=== PATIENT | male | born 1935 | race Caucasian/White ===

== ENCOUNTER → 2017-01-02 | Outpatient (CLI) | payer OTHER ==
[~2017-01-02] VITALS: Ht 188 cm; Wt 123.6 kg
[~2017-01-02] MED LIST: ACETAMINOPHEN325 M1 PO; ADALAT CC30 MG; ADULT LOW DOSE81 MG PO; APAP500 PO; AVAPRO300 MG; BACTROBAN NASAL1 GM NS; CENTRUM SILVER1 EAC1 PO; CITRACAL + BON1 EACH PO; CITRACAL + D C1 EACH; COLACE 100 MG100 MG; COLACE 100 MG100 MG PO; COLACE100 MG PO; COUMADIN 5 MG TA5 M1 PO; COUMADIN7.5 MG PO; COZAAR 50 MG TA50 M1 PO; CRESTOR10 MG PO; CYMBALTA20 MG PO; DIOVAN160 MG PO; ENDOCET 10-3251 EACH PO; FENTANYL PA25 MCG/HR TRANSDERM; FENTANYL PA50 MCG/HR TOP; FENTANYL PA50 MCG/HR TP; FENTANYL PATCH75 MCG TRANSDERM; FISH OIL 1,0001 EAC5 PO; FLOMAX PO; FLOMAX0.4 MG PO; GABAPENTIN 100100 MG PO; HYDROCODON-ACE1 EAC5 PO; KEFLEX500 MG PO; LAMISIL250 MG PO; LASIX 40 MG TAB40 M2 PO; LAXATIVE8.6 MG PO; LINZESS145 MCG; LINZESS290 MCG PO; LORTAB; LORTAB 7.5/5001 TA3 PO; LOSARTAN POTAS100 MG PO; LOSARTAN POTASS50 MG PO; LOVASTAT20 PO; LYNOX 10-300 M1 EACH PO; LYRICA 50 MG50 MG PO; METAMUCIL197.2 GM; METAMUCIL283 GM; METAMUCIL283 GM PO; MIRALAX17 GM PO; MIRALAX255 GM; MIRALAX255 GM PO; MUPIROCIN22 GM NS; NAPROSYN500 MG PO; NEURONTIN 300300 M1 PO; NIFEDIPINE10 MG PO; NORCO 10-325 T1 EACH PO; NORVASC 5 MG TAB5 MG PO; POTASSIUM20 PO; PRILOSEC 20 MG20 MG PO; PROBIOTIC1 EAC1 PO; PROCARDIA XL30 MG PO; PROCARDIA XL60 MG PO; STOOL SOFTENER100 MG; TRAMADOL 50 MG50 MG; VITAMIN D3400 UNIT PO; XARELTO10 M1 PO; XARELTO15 MG PO; ZOCOR 20 MG TAB20 M1 PO
--- NOTE | ~2017-01-02 | HPC ---
[facility] [place] [address] PAIN MANAGEMENT CONSULTATION Name: LAKHWINDER FONTANEZ JR Room #: REG HENRI Cristobal.#: [id number] Admission: 01/02/17 Attend Phys: Sanju Azevedo MD Discharge: Date of : 33 Report #: [id number] THIS REPORT FOR: //name// CC: [facility] physician/PCP Sanju Azevedo DATE OF SERVICE: 01/02/2017 DATE OF REGISTRATION: 01/02/2017. REASON FOR VISIT: Followup visit for management of chronic intractable pain with multiple pain generators, post-laminectomy syndrome and Hqmiphy-Zbygq-Ykwwu syndrome with neuropathic components. SUBJECTIVE: The patient is here today with his . They have recently returned from [place]. They received medication from a physician there when they were out of town. I continue to support his use of opioid medication given its excellent pain relieving effects for him and his condition. He has tolerated the medications well, and we will keep him on current doses, which are fentanyl 75 mcg q.72 hour patch and [place] 10/325 q.6 hours 1-2 tablets. I have also recommended slight increase with gradual titration upward of gabapentin towards 600 or 900 mg, and prescriptions were written for those medications as well. We discussed the opioid crisis, the importance of safeguarding all medications, taking them as prescribed by the physician. He denies any significant side effects; constipation is managed. His reports that with medication, he is far more functional and active. He has shown no addictive behaviors. PHYSICAL EXAMINATION: NEUROLOGIC: He is pleasant, alert and oriented. He is able to move from sitting to standing position, walks with a cane. He has pain in both legs and has antalgic features. Tenderness is noted in the low back, left shoulder and throughout the muscles. He has pain in his feet with tenderness. They are misshapen from Hksqphe-Vxmkd-Clmvp. VITAL SIGNS: Blood pressure is 125/66, heart rate 60, BMI is 35.0. IMPRESSION: 1. Chronic low back pain status post decompressive laminectomy and lumbar radiculopathy. 2. Nijpyum-Sjuzq-Rcooq syndrome with neuropathic pain. 3. Management of high-risk medications. 4. Osteoarthritis, left shoulder. [facility] [address] [place] [address] PAIN MANAGEMENT CONSULTATION Name: LAKHWINDER FONTANEZ Room #: REG [facility].#: [id number] Admission: 01/02/17 Attend Phys: Sanju Azevedo MD Discharge: Date of : 33 Report #: [id number] PLAN: Renew medications. His opioid agreement was reviewed in detail, and I plan to see him back in the pain clinic in 3 months. Written instructions were provided on the prescription pad for the use of gabapentin. By: [id number] Sanju Azevedo MD /nt
[2017-01-02 11:36] VITALS: BP 125/66
== END | disposition home or self-care (01) ==
LOC: PAIN 07:02
DX: M96.1 Postlaminectomy syndrome, not elsewhere classified (principal); G89.29 Other chronic pain; G60.0 Hereditary motor and sensory neuropathy; M19.012 Primary osteoarthritis, left shoulder

== ENCOUNTER → 2017-03-27 | Outpatient (CLI) | payer OTHER ==
[~2017-03-27] VITALS: Ht 188 cm; Wt 121.7 kg
[~2017-03-27] MED LIST changes: +B-121000 MC2 PO; +LINZESS72 MCG PO
--- NOTE | ~2017-03-27 | HPC ---
[facility] [place] [address] PAIN MANAGEMENT CONSULTATION Name: LAKHWINDER FONTANEZ JR Room #: REG HENRI Cristobal.#: [id number] Admission: 03/27/17 Attend Phys: Sanju Azevedo MD Discharge: Date of : 33 Report #: [id number] THIS REPORT FOR: //name// CC: [facility] physician/PCP Sanju Azevedo DATE OF SERVICE: 03/27/2017 Followup visit for chronic intractable pain and management of high risk medications for multiple pain generators. I am seeing the patient today with his . He is here for medication. He is doing well. We have had several discussions. Over the course of the last few years, we hear more and more about the opioid crisis. They have a good understanding of his medication and how to use it. They understand the difference between addiction and therapeutic use of medications. They understand also the importance of safeguarding all medications and we have reviewed our opioid agreement today. The course over the last several months has been stable. He has multiple pain generators as mentioned. One of the most problematic areas is his left shoulder and he is scheduled on 05/01/2017 to have a left shoulder replacement. This will be performed by Dr. Harper at [facility]. We have discussed how he may be able to taper his breakthrough medication, currently being used almost daily at maximum 4 tablets. If he can reduce this in the weeks prior to surgery, even a short-term reduction seems to have reduced some tolerance, so that postoperative pain can be treated more effectively with additional opioids if necessary. MEDICATIONS: Reviewed and reconciled from the electronic medical record. I provided for him fentanyl 75 mcg patches q. 72 hours and [place] 10/325 one tablet 4 times daily. PHYSICAL EXAMINATION: GENERAL: He is a bit hard of hearing, pleasant. VITAL SIGNS: His blood pressure is 130/67, heart rate is 61. BMI is 34.4. EXTREMITIES: His left shoulder reveals reduced range of motion with crepitus and pain. He has diffuse body tenderness consistent with myofascial pain and fibromyalgia. He has neuropathic pain as well with burning and tingling sensations with allodynia in the lower extremities. There is mild edema. IMPRESSION: 1. Chronic back pain, status post decompressive laminectomy with lumbar radiculopathy. 2. Diffuse myofascial pain. [address] [address] PAIN MANAGEMENT CONSULTATION Name: LAKHWINDER FONTANEZ Room #: REG [facility] Cristobal.#: [id number] Admission: 03/27/17 Attend Phys: Sanju Azevedo MD Discharge: Date of : 33 Report #: [id number] 3. Qabgebd-Lezyk-Lbbms syndrome with neuropathic pain causing allodynic sensations and burning. 4. Osteoarthritis, left shoulder with anticipated left shoulder replacement. 5. Management of high risk medications under terms of written opioid agreement. PLAN: I renewed his fentanyl 75 mcg patches q. 72 hours and his hydrocodone 10/325 one tablet q. 6 hours p.r.n. breakthrough pain and a followup visit will be scheduled for him in 3 months. I have made myself available to them by phone if there are questions during this postoperative period for help with pain management. By: [id number] Sanju Azevedo MD /nt
[2017-03-27 09:58] VITALS: BP 130/67
== END ==
LOC: PAIN 07:23
DX: M54.16 Radiculopathy, lumbar region (principal)

== ENCOUNTER → 2017-04-24 | Outpatient (CLI) | payer OTHER ==
[~2017-04-24] VITALS: Ht 188 cm; Wt 122.5 kg
[~2017-04-24] MED LIST changes: +CITRACAL + D M1 EACH PO; +IRBESARTAN150 MG PO; -STOOL SOFTENER100 MG; +STOOL SOFTENER100 MG PO
--- NOTE | ~2017-04-24 | P ---
[facility] [address] [place] [address] PROCEDURE REPORT Name: LAKHWINDER FONTANEZ JR Room #: REG ADELSOAudrey Morales#: [id number] Admission: 04/24/17 Attend Phys: Hernandez Moon MD Discharge: Date of : 33 Report #: [id number] THIS REPORT FOR: //name// CC: Dmitry Moon DATE OF SERVICE: 05/14/2017 PROCEDURE PERFORMED: Bi-V pacemaker generator exchange with prior epicardial lead placement back in 2011. PREOPERATIVE DIAGNOSIS: Bi-V pacemaker at elective replacement interval. POSTOPERATIVE DIAGNOSIS: Bi-V pacemaker at elective replacement interval. HISTORY OF PRESENT ILLNESS: The patient is an 81-year-old status post pacemaker with AV node ablation and upgrade to a biventricular pacemaker with epicardial leads in 2011, who is here for generator exchange. ANESTHESIA: The patient underwent MAC anesthesia with no anesthesia related complications. PROCEDURE: The patient underwent informed consent. We discussed the details of the procedure including the risk, which include, but are not limited to bleeding, infection and possible lead revisions. As such, the patient was brought to the EP laboratory in fasting and sedated state, prepped and draped in a sterile fashion, received IV antibiotics prior to initiation of the procedure. Lidocaine was injected at the prior incision site. Using a blade, an incision was made and the chronic pocket was opened. The old device was disconnected and the new device was connected and placed in the pocket. The [employer] antibiotic pouch was placed in the pocket due to his high risk for infection. The pocket was irrigated with vancomycin and then the pocket was closed in 3 layers using 2-0 for the deep layer, 3-0 for the mid layer, 4-0 for the subcuticular layer. Surgical glue was placed in the outer skin layer. The patient awoke neurologically and hemodynamically intact. No complications and no significant bleeding. The explanted generator was a [employer] model #H120, serial #[id number]. The newly implanted device was a [employer], model #NC1802, serial #[id number]. The RV lead was a Med[employer]onic model #5068, serial #[id number], implanted back on 11/09/2002. The LV lead was a model #4046, serial #[id number], implanted in November 2010. He also had a capped LV lead that was a model #4046, serial #[id number], implanted in November 2010. The RV lead demonstrated no underlying R waves with an impedance of 340 ohms and the pacing threshold of 1.5 volts at 0.5 milliseconds, the LV lead showed no R waves with impedance of 350 ohms and a pacing threshold of 1 volt at 0.6 milliseconds. The device was programmed to the VVIR 60-120 mode. [facility] [address] [place] [address] PROCEDURE REPORT Name: LAKHWINDER FONTANEZ Room #: REG HENRI Morales#: [id number] Admission: 04/24/17 Attend Phys: Hernandez Moon MD Discharge: Date of : 33 Report #: [id number] CONCLUSIONS: 1. Successful pacemaker generator exchange. 2. Satisfactory right ventricular and left ventricular pacing and sensing thresholds. 3. Implantation of a [employer] antibiotic pouch due to higher risk of infection. By: [id number] Hernandez Moon MD /nt
[2017-04-24 09:04] VITALS: BP 171/89
[2017-04-24 09:04] LABS: ABSOLUTE NEUTROPHILS 3.9 thou/uL (1.4-8.2); BASOPHILS 1.5 % (0.0-2.0); HEMATOCRIT 44.2 % (42.0-52.0); HEMOGLOBIN 15.2 gm/dL (14.0-18.0); LYMPHOCYTES 24.6 % (24.0-44.0); MCH 32.7 pg (26.0-34.0); MCHC 34.3 g/dL (28.0-37.0); MCV 95.2 fL (80.0-100.0); MONOCYTES 11.9 % (1.0-8.0); PLATELET COUNT 156 thou/uL (150-400); RBC 4.64 mil/uL (4.50-6.00); RDW 13.1 % (10.5-14.5); WBC 6.9 thou/uL (4.0-11.0)
[2017-04-24 09:09] LABS: MANUAL DIFF NO
[2017-04-24 09:11] LABS: CALCIUM 9.4 mg/dL (8.5-10.1); CREATININE 1.3 mg/dL (0.7-1.3); POTASSIUM 3.8 mmol/L (3.5-5.1)
[2017-04-24 09:17] LABS: ALBUMIN 3.4 g/dL (3.4-5.0); TOTAL BILIRUBIN 0.9 mg/dL (<0.1-1.0); TOTAL PROTEIN 6.6 g/dL (6.4-8.2)
[2017-04-24 09:20] LABS: PROTIME 10.3 Seconds (9.3-11.4)
== END | disposition home or self-care (01) ==
LOC: CATH 07:22
PROVIDERS: Internal Medicine Cardiovascular Disease
DX: Z45.010 Encounter for checking and testing of cardiac pacemaker pulse generator [battery] (principal)
CPT/HCPCS: 62110; 62900; 70005

== ENCOUNTER → 2017-07-14 | Outpatient (CLI) | payer OTHER ==
[~2017-07-14] VITALS: Ht 188 cm; Wt 126.2 kg
--- NOTE | ~2017-07-14 | HPC ---
[facility] [address] [place] [address] PAIN MANAGEMENT CONSULTATION Name: LAKHWINDER FONTANEZ JR Room #: REG HENRI Cristobal.#: [id number] Admission: 07/14/17 Attend Phys: Sanju Azevedo MD Discharge: Date of : 33 Report #: [id number] THIS REPORT FOR: //name// CC: Dmitry Azevedo DATE OF SERVICE: 07/14/2017 DATE OF REGISTRATION: 07/14/2017 Followup visit for chronic intractable pain. The patient presents back to pain clinic today with his . Since I last saw him undergone shoulder surgery. He is doing extremely well and is very pleased with the care of Hood Harper MS, . He is undergoing physical therapy and making some progress. He continues, however, to complain of pain in his low back with spondylosis and radiculopathy. Now that his shoulder is improving, his back seems to be taking prominence. He scores his pain at sitting 2-3/10, walking 5-6/10. He has great difficulty getting up and down from sitting to standing and he walks with a cane and marked antalgic features. He is a fall risk. We discussed the importance of keeping his cane with him at all times. Comorbidities include atrial fibrillation, status post AV node ablation, pacemaker, cardiomyopathy, coronary artery disease. He has diffuse osteoarthritis and status post knee arthroplasty. MEDICATIONS: Reviewed and reconciled. He is here today because I provided him with a strong opioid medication under terms of written opioid agreement. He is doing well on his current medications, which are fentanyl 75 mcg q. 72 hours and hydrocodone 10/325 up to 4 tablets daily. PHYSICAL EXAMINATION: His blood pressure 123/72, heart rate 60, BMI is 35.7. It is unlikely that he will be able to lose weight given his limited mobility. Watching him get out of chair is painful in and of itself. He has a great deal of difficulty getting up. He could only use his right arm to help get up with his recent shoulder surgery. He was able to accomplish this however, independently, but his gait is broad-based and a bit unsteady with a cane. He has pain and tenderness across his low back, he has extensive scar. Straight leg raising is positive bilaterally in the lower extremities. He has 1+-2+ edema. IMPRESSION: 1. Chronic low back pain with radiculopathy. [facility] [address] [place] [address] PAIN MANAGEMENT CONSULTATION Name: LAKHWINDER FONTANEZ [facility] [id number] Admission: 07/14/17 Attend Phys: Sanju Azevedo MD Discharge: Date of : 33 Report #: [id number] 2. Post-laminectomy syndrome. 3. Diffuse osteoarthritis. His shoulder has been recently replaced and that has improved much of the pain there. 4. Chronic neuropathic pain diagnosed as Eftrpcd-Flcoe-xhgvj. 5. Management of complex high risk medications. PLAN: 1. Buccal drug screen was performed today. None has been performed in the last several years. 2. Prescribed fentanyl patches at 75 mcg q. 72 hours and hydrocodone 10/325 four tablets daily for breakthrough. 3. Consider epidural steroid injection in the future. is resistant to this since he has had no relief from previous injections performed at an outside clinic. 4. Follow up in 3 months. <ELECTRONICALLY SIGNED> By: Sanju Azevedo MD 07/28/17 1507 [id number] [id number] Sanju Azevedo MD /nt
[2017-07-14 10:58] VITALS: BP 123/72
== END ==
LOC: PAIN 06:25
DX: M54.16 Radiculopathy, lumbar region (principal); I48.91 Unspecified atrial fibrillation; I42.9 Cardiomyopathy, unspecified; I25.10 Atherosclerotic heart disease of native coronary artery without angina pectoris; M96.1 Postlaminectomy syndrome, not elsewhere classified; M79.2 Neuralgia and neuritis, unspecified; G60.0 Hereditary motor and sensory neuropathy; M19.012 Primary osteoarthritis, left shoulder; Z95.0 Presence of cardiac pacemaker; Z96.659 Presence of unspecified artificial knee joint; Z98.890 Other specified postprocedural states; Z79.899 Other long term (current) drug therapy

== ENCOUNTER → 2017-09-25 | Outpatient (CLI) | payer OTHER ==
[~2017-09-25] VITALS: Ht 188 cm; Wt 127.0 kg
[~2017-09-25] MED LIST changes: +SYMPROIC0.2 MG PO
--- NOTE | ~2017-09-25 | HPC ---
[facility] [address] [place] [address] PAIN MANAGEMENT CONSULTATION Name: LAKHWINDER FONTANEZ JR Room #: REG HENRI Cristobal.#: [id number] Admission: 09/25/17 Attend Phys: Sanju Azevedo MD Discharge: Date of : 33 Report #: [id number] THIS REPORT FOR: //name// CC: Dmitry Azevedo DATE OF SERVICE: 09/25/2017 Followup visit for chronic intractable pain, low back with radiculopathy. This is a followup for the patient who is here today with his . He is on an opioid agreement. His medications are providing good relief of pain. No adjustments are necessary. The patient is 81 years of age. His feels today that without his medication, he would not be able to provide for his own activities of daily living. Reduces his pain fairly well. He has had improvement in his shoulder following surgery in June and most of his pain now is in the low back. He has many other comorbidities including cardiomyopathy, coronary artery disease, diffuse osteoarthritis. He has a pacemaker and has atrial fibrillation. He is unable to take anti-inflammatory drugs due to his use of Xarelto. Opioids have been the main stay. He showed good tolerance to the medication, although his morphine milligram equivalency is fairly high. We reviewed the CDC guidelines and the importance of safeguarding all medications. I have agreed to provide him this level above 90 MME because of his stability, his age and our palliative use. We are clearly meeting some functional goals with his medication. We have done a urine drug screen recently, which was reviewed from 07/15/2017. This was actually a buccal screen quite accurate and it shows only evidence of the medications that he has been provided with no surprises. PQRS review is completed. He has a fall risk using a cane. He is on a blood thinner, needs to be cautious. His opioid agreement reviewed, his functional assessment tool is actually fairly low at 31/70. He is at low risk for addiction. His BMI is 35.9, some of this is due to peripheral edema. IMPRESSION: 1. Chronic low back pain with radiculopathy. 2. Post-laminectomy syndrome. 3. Diffuse osteoarthritis. 4. Chronic neuropathic pain. Rehnclb-Whymf-Lgoja syndrome. 5. Cardiomyopathy. [address] [address] PAIN MANAGEMENT CONSULTATION Name: LAKHWINDER FONTANEZ [facility] [id number] Admission: 09/25/17 Attend Phys: Sanju Azevedo MD Discharge: Date of : 33 Report #: [id number] 6. Coronary artery disease. 7. Management of high risk medications under terms of written opioid agreement. PLAN: I renewed his fentanyl patch 75 mcg every 3 days and also his breakthrough medication hydrocodone 10/325 four tablets daily. He and his will carefully monitor these medications and we will see him back in the pain clinic in 3 months. <ELECTRONICALLY SIGNED> By: Sanju Azevedo MD 10/08/17 1640 [id number] Sanju Azevedo MD /nt
[2017-09-25 12:44] VITALS: BP 138/78
== END ==
LOC: PAIN 07:14
DX: M54.16 Radiculopathy, lumbar region (principal); M96.1 Postlaminectomy syndrome, not elsewhere classified; M19.90 Unspecified osteoarthritis, unspecified site; G60.0 Hereditary motor and sensory neuropathy; I42.9 Cardiomyopathy, unspecified